=== PATIENT | male | born 1940 | race Caucasian/White ===

== ENCOUNTER 2018-04-13 19:32 | Emergency (ER) | payer MEDICARE ==
[2018-04-13 20:49] LABS: RAPID GROUP A STREP NEGATIVE (NEGATIVE)
[2018-04-13 20:58] LABS: BASOPHILS % (AUTO) 0.1 % (0.0-5.0); HEMATOCRIT 40.3 % (42-54); LYMPHOCYTES % (AUTO) 3.7 % (21.0-51.0); MEAN CORPUSCULAR HEMOGLOBIN 28.7 pg (27.0-33.0); MEAN CORPUSCULAR HGB CONC 32.9 g/dL (32.0-36.0); MEAN CORPUSCULAR VOLUME 87.4 fL (79-99); MONOCYTES % (AUTO) 8.3 % (3.0-13.0); NEUTROPHILS % (AUTO) 87.9 % (40.0-77.0); PLATELET COUNT (AUTO) 160 K/uL (130-400); RED BLOOD CELL COUNT(AUTO) 4.61 MIL/uL (4.50-6.20); RED CELL DISTRIBUTION WIDTH 15.2 % (11.0-15.5)
[2018-04-13 21:03] LABS: APPEARANCE,URINE CLOUDY (CLEAR); BILIRUBIN,URINE NEGATIVE (NEGATIVE); COLOR,URINE YELLOW (YELLOW); GLUCOSE, URINE (UA) NEGATIVE (NEGATIVE); KETONES,URINE NEGATIVE (NEGATIVE); LEUKOCYTE ESTERASE ,URINE LARGE (NEGATIVE); NITRATE,URINE NEGATIVE (NEGATIVE); OCCULT BLOOD,URINE LARGE (NEGATIVE); PH,URINE 5.5 (5.0-8.0); PROTEIN,URINE 100 (NEGATIVE); UROBILINOGEN,URINE 0.2 mg/dL (0.2-1.0)
[2018-04-13] MEDS ORDERED: SODIUM CHLORIDE 0.9% 500ML 500 ML IV ONE (21:03)
[2018-04-13] MEDS ORDERED: ACETAMINOPHEN EXTRA STRENGTH 500 MG TABLET ONE (21:03)
[2018-04-13 21:11] LABS: CREATININE 1.7 mg/dL (0.5-1.5); POTASSIUM 3.9 mmol/L (3.5-5.1)
[2018-04-13 21:15] LABS: WBC,URINE 26-50 /HPF (0-1)
[2018-04-13 21:16] LABS: BACTERIA,URINE Moderate /HPF (None Seen)
[2018-04-13 21:17] LABS: ALBUMIN 3.1 g/dL (3.5-5.0); BILIRUBIN,TOTAL 0.8 mg/dL (0.2-1.0); TOTAL PROTEIN, SERUM 6.3 g/dL (6.0-8.3)
[2018-04-13 21:17] LABS: SQUAMOUS EPITHELIAL CELL,UR Rare /HPF (0-2)
[2018-04-13 21:18] LABS: RBC,URINE 51-100 /HPF (0-1)
[2018-04-13] MEDS ORDERED: CEFTRIAXONE SODIUM 1 GM ONE (21:56)
[2018-04-13] MEDS ORDERED: SODIUM CHLORIDE 0.9% 50 ML IV ONE (21:58)
== END 2018-04-13 22:52 | disposition home or self-care (01) ==
LOC: EDH 19:32
DX: N39.0 Urinary tract infection, site not specified (principal); E78.5 Hyperlipidemia, unspecified; Z98.890 Other specified postprocedural states; Z88.8 Allergy status to other drugs, medicaments and biological substances; Z91.048 Other nonmedicinal substance allergy status
CPT/HCPCS: 36415; 71045; 80053; 81001; 84484; 85025; 87804 ×2; 87880; 93005; 96374; 99284; J0696; J7040